=== PATIENT | female | born 1960 | race Caucasian/White ===

== ENCOUNTER 2024-04-18 04:13 | Emergency (ER) | payer OTHER ==
[2024-04-18] MEDS ORDERED: Acetaminophen 500 MG TAB ONE (04:49)
[2024-04-18] MEDS ORDERED: Ondansetron PF 4 MG/2 ML Vial ONE (04:49)
[2024-04-18] MEDS ORDERED: diphenhydrAMINE 50 MG/ML VIAL ONE (04:49)
[2024-04-18] MEDS ORDERED: Metoclopramide HCl 10 MG (2 mL) VIAL ONE (04:50)
== END 2024-04-18 06:04 | disposition home or self-care (01) ==
LOC: BURERS 04:13
DX: A08.4 Viral intestinal infection, unspecified (principal)
CPT/HCPCS: 96361; 96374; 96375; J1200; J2405; J2765